=== PATIENT | male | born 1940 | race Caucasian/White ===

== ENCOUNTER 2016-08-09 14:30 | Inpatient (IN) | payer MEDICARE, MEDICAID ==
[~2016-08-09] VITALS: Ht 170.2 cm; Wt 91.4 kg
[~2016-08-09 14:30] MED LIST: ACLI400A2 IH; ALBU8HFA4 IH; BECL8.7A5 IH; DOXA2TAB PO; LOSA50TA37 PO; METF500T4 PO; METO25 PO; SIMV-261 PO; WARF3TAB29 PO
[2016-08-09 15:17] LABS: GLUCOSE,POINT OF CARE 131 MG/DL (70-110)
[2016-08-09] MEDS ORDERED: RIVA20TA PO (16:09)
[2016-08-09] MEDS ORDERED: SOTA80 PO (16:09)
[2016-08-09] MEDS ORDERED: BENZ1LOZ68 PO (16:09)
[2016-08-09] MEDS ORDERED: FURO40 PO (16:09)
[2016-08-09] MEDS ORDERED: ATOR40TA28 PO (16:09)
[2016-08-09] MEDS ORDERED: BENA5TAB26 PO (16:30)
[2016-08-09] MEDS ORDERED: HYDR-309 PO (16:30)
[2016-08-09] MEDS ORDERED: FEXO-58 PO (16:30)
[2016-08-09 20:31] LABS: HEMATOCRIT 37.5 % (41-53); HEMOGLOBIN 12.1 g/dL (13.5-17.5); MEAN CORPUSCULAR HGB CONC 32.3 G/dL (31.0-37.0); MEAN CORPUSCULAR VOLUME 84 fL (80-100); PLATELET COUNT (AUTO) 191 K/uL (150-450); RED BLOOD CELL COUNT(AUTO) 4.48 MIL/uL (4.50-5.90); RED CELL DISTRIBUTION WIDTH 15.2 % (11.5-14.5); WHITE BLOOD COUNT (AUTO) 14.5 K/uL (4.5-11.0)
[2016-08-09 20:44] LABS: ANION GAP 10 mmol/L (8-16); CARBON DIOXIDE 22 mmol/L (22-29); CHLORIDE 102 mmol/L (98-107); CREATININE 1.33 mg/dL (0.60-1.30); GLOMERULAR FILTR. RATE CALC 52 mL/min (>60); POTASSIUM 4.8 mmol/L (3.5-5.1); SODIUM SERUM 134 mmol/L (136-145); UREA NITROGEN, BLOOD 25 mg/dL (7-18)
[2016-08-09 20:51] LABS: ALANINE AMINOTRANSFERASE 44 U/L (12-78); ALBUMIN 3.2 g/dL (3.4-5.0); ASPARTATE AMINOTRANSFERASE 24 U/L (15-37); BILIRUBIN,TOTAL 0.8 mg/dL (0.1-1.0); CREATINE KINASE, TOTAL 42 U/L (39-308); TOTAL PROTEIN, SERUM 6.9 g/dL (6.4-8.2)
[2016-08-09 20:54] LABS: INR 1.3 (0.9-1.1); PROTHROMBIN TIME 13.4 SEC (9.4-11.6)
[2016-08-09 20:55] LABS: B-TYPE NATRIURETIC PEPTIDE 100 pg/mL (0-100)
[2016-08-09] MEDS ORDERED: SODIUM CHLORIDE 0.9% 500 ML IV ONE (21:00)
[2016-08-09 21:39] LABS: BAND NEUTROPHILS % (MANUAL) 7 % (1-5); LYMPHOCYTES % (MANUAL) 7 % (22-44); TOTAL CELLS COUNTED 100
[2016-08-09 21:40] LABS: WBC MORPHOLOGY TOXIC GRAN
[2016-08-09] MEDS ORDERED: HYDROCODONE/ACETAMINOPHEN 5-325 MG TABLET PO ONE (21:45)
[2016-08-09] MEDS ORDERED: ACETAMINOPHEN 325 MG TABLET PO PRN (22:00)
[2016-08-09] MEDS ORDERED: 0.9% SODIUM CHLORIDE 10 ML SYRINGE IVP PRN (22:00)
[2016-08-09] MEDS ORDERED: ONDANSETRON HCL 4 MG/2 ML VIAL IVP PRN (22:00)
[2016-08-09 22:06] LABS: GLUCOSE,POINT OF CARE 103 MG/DL (70-110)
[2016-08-09 22:59] LABS: APPEARANCE,URINE CLEAR (CLEAR); GLUCOSE, URINE (UA) NEGATIVE (NEGATIVE); KETONES,URINE TRACE mg/dL (NEGATIVE); LEUKOCYTE ESTERASE ,URINE TRACE (NEGATIVE); OCCULT BLOOD,URINE NEGATIVE (NEGATIVE); PROTEIN,URINE NEGATIVE (NEGATIVE)
[2016-08-09 23:10] LABS: ADD UA MICROSCOPIC YES
[2016-08-09 23:12] LABS: RBC,URINE 0-2 /HPF (0-2); SQUAMOUS EPITHELIAL CELL,UR Rare /LPF (None Seen)
[2016-08-10] VITALS (7 sets, daily range): BP systolic 91–119; BP diastolic 44–69
[2016-08-10] MEDS ORDERED: NITR0.4T27 SL (01:39)
[2016-08-10] MEDS ORDERED: ACLI400A2 IH (01:39)
[2016-08-10] MEDS: SODIUM CHLORIDE 0.9% 1,000 ML IV SCH (03:30)
[2016-08-10] MEDS ORDERED: DEXTROSE 50%-WATER 25 GM/50 ML SYRINGE IVP PRN (06:45)
[2016-08-10] MEDS ORDERED: MORPHINE SULFATE 2 MG/ML SYRINGE IVP PRN (06:45)
[2016-08-10] MEDS ORDERED: NITROGLYCERIN 0.4 MG SUBLINGUAL TABLET #25 SL PRN (07:00)
[2016-08-10] MEDS ORDERED: [UNRECOGNIZED DRUG - OTHER] IH SCH (07:00)
[2016-08-10] MEDS ORDERED: BENZOCAINE/MENTHOL LOZENGE [8 LOZENGES/PACKET] MM PRN (07:15)
[2016-08-10 07:16] LABS: HEMATOCRIT 33.5 % (41-53); HEMOGLOBIN 10.8 g/dL (13.5-17.5); MEAN CORPUSCULAR HEMOGLOBIN 27.1 pg (26.0-34.0); MEAN CORPUSCULAR HGB CONC 32.2 G/dL (31.0-37.0); MEAN CORPUSCULAR VOLUME 84 fL (80-100); PLATELET COUNT (AUTO) 171 K/uL (150-450); RED BLOOD CELL COUNT(AUTO) 3.98 MIL/uL (4.50-5.90); RED CELL DISTRIBUTION WIDTH 14.7 % (11.5-14.5)
[2016-08-10 07:33] LABS: BILIRUBIN,TOTAL 0.8 mg/dL (0.1-1.0); CALCIUM, TOTAL 8.6 mg/dL (8.8-10.5); CREATININE 1.26 mg/dL (0.60-1.30); POTASSIUM 4.2 mmol/L (3.5-5.1); TOTAL PROTEIN, SERUM 6.4 g/dL (6.4-8.2)
[2016-08-10] MEDS: IPRATROPIUM BROMIDE 0.5 MG/2.5 ML NEB SOLUTION NEB SCH ×3 (08:00→19:33)
[2016-08-10] MEDS: ALBUTEROL SULFATE 2.5 MG/0.5 ML NEB SOLUTION NEB SCH ×3 (08:00→19:33)
[2016-08-10 08:49] LABS: BAND NEUTROPHILS % (MANUAL) 8 % (1-5); LYMPHOCYTES % (MANUAL) 6 % (22-44); TOTAL CELLS COUNTED 100
[2016-08-10] MEDS ORDERED: ATORVASTATIN CALCIUM 40 MG TABLET PO SCH (09:00)
[2016-08-10] MEDS ORDERED: SIMVASTATIN 40 MG TABLET PO SCH (09:00)
[2016-08-10] MEDS: FUROSEMIDE 40 MG TABLET PO SCH (09:29)
[2016-08-10] MEDS: PANTOPRAZOLE SODIUM 40 MG/VIAL IVP SCH (09:29)
[2016-08-10] MEDS: BECLOMETHASONE DIPR 80 MCG/PUFF 8.7 GM INHALER IH SCH ×2 (09:30→20:04)
[2016-08-10] MEDS: DOXAZOSIN MESYLATE 2 MG TABLET PO SCH (09:31)
[2016-08-10] MEDS: BENAZEPRIL HCL 5 MG TABLET PO SCH (09:31)
[2016-08-10] MEDS: SOTALOL HCL 80 MG TABLET PO SCH ×2 (09:31→20:06)
[2016-08-10] MEDS: FEXOFENADINE HCL 60 MG TABLET PO SCH (09:31)
[2016-08-10] MEDS: INSULIN ASPART 100 UNITS/ML SQ PRN ×2 (11:41→20:10)
[2016-08-10] MEDS: RIVAROXABAN 20 MG TABLET PO SCH (17:21)
[2016-08-10] MEDS ORDERED: SODIUM CHLORIDE 0.9% 1,000 ML IV SCH (23:45)
[2016-08-10] MEDS ORDERED: SODIUM CHLORIDE 0.9% 250 ML IV ONE (23:45)
[2016-08-10] MEDS ORDERED: ACETAMINOPHEN 325 MG TABLET PO PRN (23:45)
[2016-08-11] MEDS ORDERED: ACETAMINOPHEN 325 MG TABLET PO PRN
[2016-08-11] MEDS: ALBUTEROL SULFATE 2.5 MG/0.5 ML NEB SOLUTION NEB SCH ×3 (02:33→19:56)
[2016-08-11] MEDS: IPRATROPIUM BROMIDE 0.5 MG/2.5 ML NEB SOLUTION NEB SCH ×3 (02:33→19:56)
[2016-08-11 03:19] VITALS: BP 96/53
[2016-08-11] MEDS ORDERED: SODIUM CHLORIDE 0.9% 250 ML IV ONE (03:30)
[2016-08-11] MEDS: INSULIN ASPART 100 UNITS/ML SQ PRN ×3 (05:09→21:43)
[2016-08-11 05:21] VITALS: BP 92/49
[2016-08-11 07:06] VITALS: BP 91/49
[2016-08-11] MEDS: FUROSEMIDE 40 MG TABLET PO SCH (09:00)
[2016-08-11] MEDS: DOXAZOSIN MESYLATE 2 MG TABLET PO SCH (09:00)
[2016-08-11] MEDS: SOTALOL HCL 80 MG TABLET PO SCH ×2 (09:00→20:16)
[2016-08-11] MEDS: PANTOPRAZOLE SODIUM 40 MG/VIAL IVP SCH (09:28)
[2016-08-11] MEDS: BECLOMETHASONE DIPR 80 MCG/PUFF 8.7 GM INHALER IH SCH ×2 (09:28→20:16)
[2016-08-11] MEDS: SODIUM CHLORIDE 0.9% 1,000 ML IV SCH ×2 (09:45→21:44)
[2016-08-11 10:54] VITALS: BP 88/45
[2016-08-11] MEDS ORDERED: NALOXONE HCL 0.4 MG/ML VIAL ONE (11:29)
[2016-08-11] MEDS ORDERED: FentaNYL CITRATE-PF 100 MCG/2 ML VIAL ONE (11:29)
[2016-08-11] MEDS ORDERED: MIDAZOLAM HCL 2 MG/2 ML VIAL ONE (11:29)
[2016-08-11] MEDS ORDERED: LIDOCAINE HCL/PF 1% 30 ML VIAL ONE (11:30)
[2016-08-11] MEDS ORDERED: FLUMAZENIL 0.1 MG/ML 5 ML VIAL IVP ONE (11:30)
[2016-08-11] MEDS ORDERED: FentaNYL CITRATE-PF 100 MCG/2 ML VIAL IVP ONE (11:42)
[2016-08-11] MEDS ORDERED: MIDAZOLAM HCL 2 MG/2 ML VIAL IVP ONE (11:43)
[2016-08-11] MEDS: FEXOFENADINE HCL 60 MG TABLET PO SCH (13:14)
[2016-08-11] MEDS: BENAZEPRIL HCL 5 MG TABLET PO SCH (13:14)
[2016-08-11] MEDS ORDERED: CefTRIAXone 1 GM/DEXTROSE 50 ML IV SCH (16:00)
[2016-08-11 16:05] VITALS: BP 90/50
[2016-08-11] MEDS: RIVAROXABAN 20 MG TABLET PO SCH (17:31)
[2016-08-11 19:34] VITALS: BP 105/56
[2016-08-11] MEDS: HYDROCODONE/ACETAMINOPHEN 5-325 MG TABLET PO PRN (20:20)
[2016-08-12 00:01] VITALS: BP 99/55
[2016-08-12] MEDS: ALBUTEROL SULFATE 2.5 MG/0.5 ML NEB SOLUTION NEB SCH ×2 (01:29→07:32)
[2016-08-12] MEDS: IPRATROPIUM BROMIDE 0.5 MG/2.5 ML NEB SOLUTION NEB SCH ×2 (01:29→07:32)
[2016-08-12 05:06] VITALS: BP 106/57
[2016-08-12] MEDS: SODIUM CHLORIDE 0.9% 1,000 ML IV SCH (05:07)
[2016-08-12] MEDS: HYDROCODONE/ACETAMINOPHEN 5-325 MG TABLET PO PRN (05:15)
[2016-08-12] MEDS: INSULIN ASPART 100 UNITS/ML SQ PRN (05:21)
[2016-08-12] MEDS ORDERED: CIPR500S5 PO (05:56)
[2016-08-12 07:42] VITALS: BP 103/59
[2016-08-12] MEDS: FEXOFENADINE HCL 60 MG TABLET PO SCH (08:01)
[2016-08-12] MEDS: PANTOPRAZOLE SODIUM 40 MG/VIAL IVP SCH (08:01)
[2016-08-12] MEDS: DOXAZOSIN MESYLATE 2 MG TABLET PO SCH (08:02)
[2016-08-12] MEDS: SOTALOL HCL 80 MG TABLET PO SCH (08:03)
[2016-08-12 08:49] VITALS: BP 117/65
[2016-08-12] MEDS: BECLOMETHASONE DIPR 80 MCG/PUFF 8.7 GM INHALER IH SCH (08:53)
[2016-08-12] MEDS: FUROSEMIDE 40 MG TABLET PO SCH (08:53)
[2016-08-15 06:43] LABS: GLUCOSE COMMENT 1 Received Meds; GLUCOSE,POINT OF CARE 177 MG/DL (70-110)
[2016-08-15 06:43] LABS: GLUCOSE COMMENT 1 Received Meds; GLUCOSE,POINT OF CARE 171 MG/DL (70-110)
[2016-08-15 06:43] LABS: GLUCOSE,POINT OF CARE 232 MG/DL (70-110)
[2016-08-15 06:43] LABS: GLUCOSE COMMENT 1 Received Meds; GLUCOSE,POINT OF CARE 135 MG/DL (70-110)
== END 2016-08-12 09:15 | disposition home or self-care (01) | DRG 896 ==
LOC: EMS 14:37 → 5S 21:59
PROVIDERS: ADMIT Internal Medicine; ATTEND Internal Medicine
PROC: 0BBJ3ZX Excision of Left Lower Lung Lobe, Percutaneous Approach, Diagnostic (ICD-10-PCS; principal; 2016-08-11)
DX: F10.129 Alcohol abuse with intoxication, unspecified (principal); R65.11 Systemic inflammatory response syndrome (SIRS) of non-infectious origin with acute organ dysfunction; N39.0 Urinary tract infection, site not specified; E87.1 Hypo-osmolality and hyponatremia; J98.11 Atelectasis; R55 Syncope and collapse; I48.91 Unspecified atrial fibrillation; E11.9 Type 2 diabetes mellitus without complications; I10 Essential (primary) hypertension; R91.8 Other nonspecific abnormal finding of lung field; I25.10 Atherosclerotic heart disease of native coronary artery without angina pectoris; E78.00 Pure hypercholesterolemia, unspecified; E78.5 Hyperlipidemia, unspecified; E66.9 Obesity, unspecified; I34.0 Nonrheumatic mitral (valve) insufficiency; Z79.1 Long term (current) use of non-steroidal anti-inflammatories (NSAID); Z79.51 Long term (current) use of inhaled steroids; Z79.899 Other long term (current) drug therapy
CPT/HCPCS: 32405; 71250; 82962; 87015; 87070; 87101; 87205; 88305; 88312; 88342; 93005; 93306; 94640; 96360; 96361; 99285; C9113; J0696; J2250; J2310; J3010; J3490; J3535; J7030; J7040; J7050

== ENCOUNTER 2016-09-10 05:35 | Inpatient (IN) | payer MEDICARE, MEDICAID ==
[~2016-09-10] VITALS: Ht 162.6 cm; Wt 92.8 kg
[~2016-09-10 05:35] MED LIST changes: +ATOR40TA28 PO; +BENA5TAB26 PO; +BENZ1LOZ68 PO; +CIPR500S5 PO; +FEXO-58 PO; +FURO40 PO; +HYDR-309 PO; -LOSA50TA37 PO; -METO25 PO; +NITR0.4T27 SL; +RIVA20TA PO; +SOTA80 PO; -WARF3TAB29 PO
[2016-09-10 05:53] LABS: GLUCOSE,POINT OF CARE 136 MG/DL (70-110)
[2016-09-10] MEDS ORDERED: ALBUTEROL SULFATE 2.5 MG/0.5 ML NEB SOLUTION NEB ONE (06:15)
[2016-09-10] MEDS ORDERED: IPRATROPIUM BROMIDE 0.5 MG/2.5 ML NEB SOLUTION NEB ONE (06:15)
[2016-09-10 06:28] LABS: EOSINOPHILS # (AUTO) 0.07 K/uL (0.00-0.70)
[2016-09-10 06:33] LABS: ANION GAP 6 mmol/L (8-16); CALCIUM, TOTAL 9.1 mg/dL (8.8-10.5); CARBON DIOXIDE 30 mmol/L (22-29); CHLORIDE 106 mmol/L (98-107); CREATININE 0.97 mg/dL (0.60-1.30); GLOMERULAR FILTR. RATE CALC > 60 mL/min (>60); POTASSIUM 4.2 mmol/L (3.5-5.1); SODIUM SERUM 142 mmol/L (136-145); UREA NITROGEN, BLOOD 10 mg/dL (7-18)
[2016-09-10 06:39] LABS: ALANINE AMINOTRANSFERASE 27 U/L (12-78); ALBUMIN 3.8 g/dL (3.4-5.0); ASPARTATE AMINOTRANSFERASE 23 U/L (15-37); BILIRUBIN,TOTAL 1.2 mg/dL (0.1-1.0); TOTAL PROTEIN, SERUM 6.9 g/dL (6.4-8.2)
[2016-09-10 06:41] LABS: BASOPHILS # (AUTO) 0.01 K/uL (0.00-0.20); BASOPHILS % (AUTO) 0.1 % (0.0-2.0); EOSINOPHILS % (AUTO) 0.92 % (1.0-6.0); HEMATOCRIT 36.3 % (41-53); HEMOGLOBIN 11.9 g/dL (13.5-17.5); LYMPHOCYTES # (AUTO) 0.9 K/uL (1.0-4.8); MEAN CORPUSCULAR HEMOGLOBIN 27.8 pg (26.0-34.0); MEAN CORPUSCULAR HGB CONC 32.8 G/dL (31.0-37.0); MEAN CORPUSCULAR VOLUME 85 fL (80-100); MONOCYTES # (AUTO) 0.2 K/uL (0.1-1.0); MONOCYTES % (AUTO) 3.3 % (2.0-9.0); NEUTROPHILS # (AUTO) 5.9 K/uL (1.8-7.7); NEUTROPHILS % (AUTO) 82.7 % (40.0-70.0); PLATELET COUNT (AUTO) 112 K/uL (150-450); RED BLOOD CELL COUNT(AUTO) 4.27 MIL/uL (4.50-5.90); RED CELL DISTRIBUTION WIDTH 17.3 % (11.5-14.5); WHITE BLOOD COUNT (AUTO) 7.1 K/uL (4.5-11.0)
[2016-09-10] MEDS ORDERED: ALBUTEROL SULFATE 5 MG/ML 20 ML NEB SOLN [BULK] NEB ONE (06:45)
[2016-09-10] MEDS ORDERED: PredniSONE 20 MG TABLET PO ONE (06:45)
[2016-09-10 07:14] LABS: B-TYPE NATRIURETIC PEPTIDE 240 pg/mL (0-100)
[2016-09-10 07:25] LABS: RBC MORPHOLOGY COMMENT ABNORMAL RBC MORPH
[2016-09-10] MEDS ORDERED: ACETAMINOPHEN 325 MG TABLET PO PRN ×2 (08:00→08:45)
[2016-09-10] MEDS ORDERED: CefTRIAXone 1 GM/DEXTROSE 50 ML IV ONE (08:00)
[2016-09-10] MEDS ORDERED: AZITHROMYCIN 500 MG/NS 250 ML IV ONE (08:00)
[2016-09-10] MEDS ORDERED: 0.9% SODIUM CHLORIDE 10 ML SYRINGE IVP PRN (08:00)
[2016-09-10] MEDS ORDERED: 0.9% SODIUM CHLORIDE 5 ML NEB SOLUTION NEB ONE (08:13)
[2016-09-10] MEDS ORDERED: MAGNESIUM HYDROXIDE SUSPENSION 30 ML UDCUP PO PRN (08:45)
[2016-09-10] MEDS: DOCUSATE SODIUM 100 MG CAPSULE PO SCH ×2 (08:56→20:52)
[2016-09-10] MEDS: PANTOPRAZOLE SODIUM 40 MG DR TABLET PO SCH (08:56)
[2016-09-10] MEDS ORDERED: DEXTROSE 50%-WATER 25 GM/50 ML SYRINGE IVP PRN (09:00)
[2016-09-10] MEDS: SOTALOL HCL 80 MG TABLET PO SCH ×2 (09:08→20:52)
[2016-09-10] MEDS: MethylPREDNISolone SOD SUCC 125 MG/2 ML VIAL IVP SCH ×2 (11:50→17:51)
[2016-09-10] MEDS: ALBUTEROL SULFATE 2.5 MG/0.5 ML NEB SOLUTION NEB SCH ×4 (12:22→23:08)
[2016-09-10] MEDS: IPRATROPIUM BROMIDE 0.5 MG/2.5 ML NEB SOLUTION NEB SCH ×4 (12:23→23:08)
[2016-09-10] MEDS: HEPARIN SODIUM,PORCINE 5,000 UNITS/ML VIAL SQ SCH (16:36)
[2016-09-10 16:37] VITALS: BP 149/77
[2016-09-10] MEDS: RIVAROXABAN 20 MG TABLET PO SCH (17:52)
[2016-09-10] MEDS: INSULIN ASPART 100 UNITS/ML SQ PRN ×2 (17:53→20:57)
[2016-09-10 19:46] VITALS: BP 150/69
[2016-09-10 20:08] LABS: GLUCOSE,POINT OF CARE 230 MG/DL (70-110)
[2016-09-10] MEDS: ATORVASTATIN CALCIUM 20 MG TABLET PO SCH (20:52)
[2016-09-10 23:24] VITALS: BP 147/75
[2016-09-11] MEDS: MethylPREDNISolone SOD SUCC 125 MG/2 ML VIAL IVP SCH ×3 (01:09→21:52)
[2016-09-11] MEDS: HEPARIN SODIUM,PORCINE 5,000 UNITS/ML VIAL SQ SCH ×3 (01:10→16:27)
[2016-09-11] MEDS: IPRATROPIUM BROMIDE 0.5 MG/2.5 ML NEB SOLUTION NEB SCH ×6 (02:30→23:00)
[2016-09-11] MEDS: ALBUTEROL SULFATE 2.5 MG/0.5 ML NEB SOLUTION NEB SCH ×6 (02:30→23:00)
[2016-09-11 05:19] VITALS: BP 144/80
[2016-09-11] MEDS: INSULIN ASPART 100 UNITS/ML SQ PRN ×4 (05:33→21:58)
[2016-09-11 06:40] LABS: B-TYPE NATRIURETIC PEPTIDE 446 pg/mL (0-100)
[2016-09-11 07:09] LABS: ANION GAP 10 mmol/L (8-16); CALCIUM, TOTAL 8.9 mg/dL (8.8-10.5); CARBON DIOXIDE 26 mmol/L (22-29); CHLORIDE 104 mmol/L (98-107); CREATINE KINASE MB 1.1 ng/mL (0-5); CREATINE KINASE, TOTAL 77 U/L (39-308); CREATININE 1.02 mg/dL (0.60-1.30); GLOMERULAR FILTR. RATE CALC > 60 mL/min (>60); POTASSIUM 4.1 mmol/L (3.5-5.1); SODIUM SERUM 140 mmol/L (136-145); UREA NITROGEN, BLOOD 17 mg/dL (7-18)
[2016-09-11 08:28] VITALS: BP 138/72
[2016-09-11] MEDS: SOTALOL HCL 80 MG TABLET PO SCH ×2 (09:00→21:51)
[2016-09-11] MEDS: PANTOPRAZOLE SODIUM 40 MG DR TABLET PO SCH (09:33)
[2016-09-11] MEDS: DOCUSATE SODIUM 100 MG CAPSULE PO SCH ×2 (09:35→21:51)
[2016-09-11 11:50] VITALS: BP 148/80
[2016-09-11] MEDS: AZITHROMYCIN 500 MG/NS 250 ML IV SCH (12:10)
[2016-09-11] MEDS: ACETYLCYSTEINE 20% 200 MG/ML 4 ML ORAL SOLUTION PO SCH ×2 (12:10→21:51)
[2016-09-11 15:56] VITALS: BP 140/82
[2016-09-11] MEDS: RIVAROXABAN 20 MG TABLET PO SCH (17:47)
[2016-09-11 21:41] VITALS: BP 141/73
[2016-09-11] MEDS: ATORVASTATIN CALCIUM 20 MG TABLET PO SCH (21:51)
[2016-09-11 23:53] VITALS: BP 153/78
[2016-09-12] MEDS: HEPARIN SODIUM,PORCINE 5,000 UNITS/ML VIAL SQ SCH ×4 (00:23→23:44)
[2016-09-12] MEDS: IPRATROPIUM BROMIDE 0.5 MG/2.5 ML NEB SOLUTION NEB SCH ×6 (02:40→22:58)
[2016-09-12] MEDS: ALBUTEROL SULFATE 2.5 MG/0.5 ML NEB SOLUTION NEB SCH ×6 (02:40→22:58)
[2016-09-12 04:03] VITALS: BP 155/79
[2016-09-12] MEDS: INSULIN ASPART 100 UNITS/ML SQ PRN ×4 (06:21→21:10)
[2016-09-12 07:32] LABS: GLUCOSE COMMENT 1 Received Meds; GLUCOSE,POINT OF CARE 209 MG/DL (70-110)
[2016-09-12 07:39] VITALS: BP 151/77
[2016-09-12] MEDS: AZITHROMYCIN 500 MG/NS 250 ML IV SCH (09:43)
[2016-09-12] MEDS: MethylPREDNISolone SOD SUCC 125 MG/2 ML VIAL IVP SCH ×2 (09:43→20:50)
[2016-09-12] MEDS: SOTALOL HCL 80 MG TABLET PO SCH ×2 (09:49→20:50)
[2016-09-12] MEDS: PANTOPRAZOLE SODIUM 40 MG DR TABLET PO SCH (09:50)
[2016-09-12] MEDS: DOCUSATE SODIUM 100 MG CAPSULE PO SCH ×2 (09:50→20:51)
[2016-09-12] MEDS: ACETYLCYSTEINE 20% 200 MG/ML 4 ML ORAL SOLUTION PO SCH ×2 (09:50→20:51)
[2016-09-12 11:39] VITALS: BP 143/78
[2016-09-12 11:54] LABS: CALCIUM, TOTAL 8.6 mg/dL (8.8-10.5); CREATININE 1.2 mg/dL (0.60-1.30); POTASSIUM 4.2 mmol/L (3.5-5.1)
[2016-09-12 15:26] VITALS: BP 136/74
[2016-09-12] MEDS: RIVAROXABAN 20 MG TABLET PO SCH (18:03)
[2016-09-12 19:20] VITALS: BP 157/86
[2016-09-12] MEDS: ATORVASTATIN CALCIUM 20 MG TABLET PO SCH (20:51)
[2016-09-13] VITALS (7 sets, daily range): BP systolic 148–158; BP diastolic 61–86
[2016-09-13] MEDS: IPRATROPIUM BROMIDE 0.5 MG/2.5 ML NEB SOLUTION NEB SCH ×6 (02:31→22:56)
[2016-09-13] MEDS: ALBUTEROL SULFATE 2.5 MG/0.5 ML NEB SOLUTION NEB SCH ×6 (02:31→22:56)
[2016-09-13] MEDS: INSULIN ASPART 100 UNITS/ML SQ PRN ×4 (05:50→21:06)
[2016-09-13] MEDS: HEPARIN SODIUM,PORCINE 5,000 UNITS/ML VIAL SQ SCH ×2 (08:16→17:58)
[2016-09-13] MEDS: AZITHROMYCIN 500 MG/NS 250 ML IV SCH (08:16)
[2016-09-13] MEDS: DOCUSATE SODIUM 100 MG CAPSULE PO SCH ×2 (08:17→21:04)
[2016-09-13] MEDS: MethylPREDNISolone SOD SUCC 125 MG/2 ML VIAL IVP SCH (08:17)
[2016-09-13] MEDS: PANTOPRAZOLE SODIUM 40 MG DR TABLET PO SCH (08:17)
[2016-09-13] MEDS: SOTALOL HCL 80 MG TABLET PO SCH ×2 (08:17→21:00)
[2016-09-13] MEDS: ACETYLCYSTEINE 20% 200 MG/ML 4 ML ORAL SOLUTION PO SCH ×2 (08:20→21:06)
[2016-09-13 09:27] LABS: GLUCOSE COMMENT 1 Received Meds; GLUCOSE,POINT OF CARE 223 MG/DL (70-110)
[2016-09-13 09:27] LABS: GLUCOSE COMMENT 1 Received Meds; GLUCOSE,POINT OF CARE 211 MG/DL (70-110)
[2016-09-13 09:27] LABS: GLUCOSE COMMENT 1 Received Meds; GLUCOSE,POINT OF CARE 280 MG/DL (70-110)
[2016-09-13 09:28] LABS: GLUCOSE COMMENT 1 Received Meds; GLUCOSE,POINT OF CARE 200 MG/DL (70-110)
[2016-09-13 09:28] LABS: GLUCOSE,POINT OF CARE 190 MG/DL (70-110)
[2016-09-13 09:32] LABS: GLUCOSE COMMENT 1 Received Meds; GLUCOSE,POINT OF CARE 229 MG/DL (70-110)
[2016-09-13 09:32] LABS: GLUCOSE COMMENT 1 Received Meds; GLUCOSE,POINT OF CARE 252 MG/DL (70-110)
[2016-09-13] MEDS: LEVOFLOXACIN 750 MG/D5% WATER 150 ML IV SCH (17:58)
[2016-09-13] MEDS: RIVAROXABAN 20 MG TABLET PO SCH (17:58)
[2016-09-13] MEDS: MethylPREDNISolone SOD SUCC 40 MG/ML VIAL IVP SCH (17:58)
[2016-09-13 20:26] LABS: GLUCOSE,POINT OF CARE 242 MG/DL (70-110)
[2016-09-13] MEDS: ATORVASTATIN CALCIUM 20 MG TABLET PO SCH (21:04)
[2016-09-14] VITALS (8 sets, daily range): BP systolic 154–166; BP diastolic 72–88
[2016-09-14] MEDS: MethylPREDNISolone SOD SUCC 40 MG/ML VIAL IVP SCH ×4 (00:11→17:46)
[2016-09-14] MEDS: HEPARIN SODIUM,PORCINE 5,000 UNITS/ML VIAL SQ SCH ×3 (00:12→17:47)
[2016-09-14] MEDS: ALBUTEROL SULFATE 2.5 MG/0.5 ML NEB SOLUTION NEB SCH ×6 (03:33→23:33)
[2016-09-14] MEDS: IPRATROPIUM BROMIDE 0.5 MG/2.5 ML NEB SOLUTION NEB SCH ×6 (03:33→23:33)
[2016-09-14] MEDS: INSULIN ASPART 100 UNITS/ML SQ PRN ×4 (05:42→20:56)
[2016-09-14 07:22] LABS: GLUCOSE COMMENT 1 Received Meds; GLUCOSE,POINT OF CARE 204 MG/DL (70-110)
[2016-09-14] MEDS: DOCUSATE SODIUM 100 MG CAPSULE PO SCH ×2 (09:08→20:25)
[2016-09-14] MEDS: PANTOPRAZOLE SODIUM 40 MG DR TABLET PO SCH (09:08)
[2016-09-14] MEDS: ACETYLCYSTEINE 20% 200 MG/ML 4 ML ORAL SOLUTION PO SCH ×2 (09:08→20:25)
[2016-09-14] MEDS: SOTALOL HCL 80 MG TABLET PO SCH ×2 (09:09→20:33)
[2016-09-14 11:47] LABS: GLUCOSE,POINT OF CARE 237 MG/DL (70-110)
[2016-09-14] MEDS ORDERED: HydrALAZINE HCL 20 MG/ML VIAL IVP PRN (13:00)
[2016-09-14] MEDS: AmLODIPine BESYLATE 5 MG TABLET PO SCH (14:03)
[2016-09-14] MEDS: RIVAROXABAN 20 MG TABLET PO SCH (17:49)
[2016-09-14] MEDS: LEVOFLOXACIN 750 MG/D5% WATER 150 ML IV SCH (17:49)
[2016-09-14] MEDS: ATORVASTATIN CALCIUM 20 MG TABLET PO SCH (20:25)
[2016-09-14] MEDS: PredniSONE 20 MG TABLET PO SCH (20:25)
[2016-09-14 23:17] LABS: GLUCOSE COMMENT 1 Received Meds; GLUCOSE,POINT OF CARE 262 MG/DL (70-110)
[2016-09-14 23:17] LABS: GLUCOSE COMMENT 1 Received Meds; GLUCOSE,POINT OF CARE 288 MG/DL (70-110)
[2016-09-15] MEDS: HEPARIN SODIUM,PORCINE 5,000 UNITS/ML VIAL SQ SCH ×3 (00:38→16:00)
[2016-09-15] MEDS: IPRATROPIUM BROMIDE 0.5 MG/2.5 ML NEB SOLUTION NEB SCH ×4 (03:17→16:06)
[2016-09-15] MEDS: ALBUTEROL SULFATE 2.5 MG/0.5 ML NEB SOLUTION NEB SCH ×4 (03:17→16:06)
[2016-09-15 03:59] VITALS: BP 159/79
[2016-09-15] MEDS: INSULIN ASPART 100 UNITS/ML SQ PRN ×2 (06:30→11:39)
[2016-09-15 07:08] VITALS: BP 143/76
[2016-09-15] MEDS: ACETYLCYSTEINE 20% 200 MG/ML 4 ML ORAL SOLUTION PO SCH (08:10)
[2016-09-15] MEDS: AmLODIPine BESYLATE 5 MG TABLET PO SCH (08:10)
[2016-09-15] MEDS: SOTALOL HCL 80 MG TABLET PO SCH (08:10)
[2016-09-15] MEDS: PredniSONE 20 MG TABLET PO SCH (08:10)
[2016-09-15] MEDS: DOCUSATE SODIUM 100 MG CAPSULE PO SCH (08:10)
[2016-09-15] MEDS: PANTOPRAZOLE SODIUM 40 MG DR TABLET PO SCH (08:10)
[2016-09-15] MEDS ORDERED: LEVOFLOXACIN 250 MG TABLET PO SCH (09:00)
[2016-09-15 10:45] VITALS: BP 158/79
[2016-09-15 13:27] LABS: GLUCOSE COMMENT 1 Received Meds; GLUCOSE,POINT OF CARE 204 MG/DL (70-110)
[2016-09-15] MEDS ORDERED: AMLO-512 PO (15:46)
[2016-09-15] MEDS ORDERED: LEVO250 PO (15:47)
[2016-09-15] MEDS ORDERED: PRED20 PO (15:50)
[2016-09-15] MEDS ORDERED: PRED10 PO (15:51)
[2016-09-17 00:12] LABS: GLUCOSE,POINT OF CARE 191 MG/DL (70-110)
[2016-09-17 00:12] LABS: GLUCOSE,POINT OF CARE 191 MG/DL (70-110)
[2016-09-17 00:12] LABS: GLUCOSE COMMENT 1 Received Meds; GLUCOSE,POINT OF CARE 193 MG/DL (70-110)
[2016-09-17 00:12] LABS: GLUCOSE,POINT OF CARE 217 MG/DL (70-110)
[2016-09-18 13:37] LABS: GLUCOSE COMMENT 1 Received Meds; GLUCOSE,POINT OF CARE 196 MG/DL (70-110)
== END 2016-09-15 17:30 | disposition home or self-care (01) | DRG 190 ==
LOC: EMS 05:36 → 5N 15:21
PROVIDERS: ADMIT Internal Medicine; ATTEND Internal Medicine
DX: J44.0 Chronic obstructive pulmonary disease with (acute) lower respiratory infection (principal); J18.9 Pneumonia, unspecified organism; I50.30 Unspecified diastolic (congestive) heart failure; I47.2 Ventricular tachycardia; I38 Endocarditis, valve unspecified; J44.1 Chronic obstructive pulmonary disease with (acute) exacerbation; I48.0 Paroxysmal atrial fibrillation; J40 Bronchitis, not specified as acute or chronic; I11.0 Hypertensive heart disease with heart failure; Z53.29 Procedure and treatment not carried out because of patient's decision for other reasons; E11.9 Type 2 diabetes mellitus without complications; E66.9 Obesity, unspecified; I25.10 Atherosclerotic heart disease of native coronary artery without angina pectoris; Z87.891 Personal history of nicotine dependence; Z68.35 Body mass index [BMI] 35.0-35.9, adult; Z79.899 Other long term (current) drug therapy; Z79.2 Long term (current) use of antibiotics; Z87.01 Personal history of pneumonia (recurrent); Z79.4 Long term (current) use of insulin
CPT/HCPCS: 82962; 83735; 87040; 87081; 93005; 94640; 94644; 94667; 94668; 96365; 96366; 96368; 96375; 99285; J0456; J0696; J1644; J1956; J2920; J2930